=== PATIENT | male | born 1995 | race Caucasian/White ===

== ENCOUNTER 2018-03-02 14:39 | Emergency (ER) | payer SELFPAY ==
[~2018-03-02] VITALS: Ht 185.4 cm; Wt 68.2 kg
[2018-03-02] MEDS ORDERED: DIPH25 PO (17:30)
[2018-03-02] MEDS ORDERED: KETO15I IM (17:30)
[2018-03-02 17:55] VITALS: BP 133/75
[2018-03-02] MEDS ORDERED: IBUPROFEN 800 MG TABLET PO ONE (18:00)
== END 2018-03-02 19:12 | disposition home or self-care (01) ==
LOC: EMS 14:41
DX: S83.91XA Sprain of unspecified site of right knee, initial encounter (principal); F12.90 Cannabis use, unspecified, uncomplicated; X50.1XXA Overexertion from prolonged static or awkward postures, initial encounter; Y93.51 Activity, roller skating (inline) and skateboarding; Y92.89 Other specified places as the place of occurrence of the external cause; Y99.8 Other external cause status